=== PATIENT | female | born 1965 ===

== ENCOUNTER 2019-01-04 10:40 | Emergency (ER) | payer OTHER ==
[~2019-01-04] VITALS: Ht 170.2 cm; Wt 77.1 kg
[2019-01-04] MEDS ORDERED: NORVASC2.5 MG (11:07)
[2019-01-04] MEDS ORDERED: ZETIA10 MG (11:08)
[2019-01-04] MEDS ORDERED: PROAIR HFA8.5 GM (11:08)
== END 2019-01-04 17:36 | disposition home or self-care (01) ==
LOC: ER 10:40
DX: K57.90 Diverticulosis of intestine, part unspecified, without perforation or abscess without bleeding (principal)